=== PATIENT | female | born 1945 | race American Indian/Alaskan Native ===

== ENCOUNTER 2019-05-22 15:17 | Emergency (ER) | payer MEDICARE ==
--- NOTE | 2019-05-22 15:28 | Event Note ---
ED Screening Note Date of service: 05/22/19 Time: 15:25 ED Screening Note: 74 y/o female comes in for right forearm laceration and right lower leg laceration s/p fall. This initial assessment/diagnostic orders/clinical plan/treatment(s) is/are subject to change based on patients health status, clinical progression and re- assessment by fellow clinical providers in the ED. Further treatment and workup at subsequent clinical providers discretion. Patient/guardian urged not to elope from the ED as their condition may be serious if not clinically assessed and managed. Initial orders include:
[2019-05-22 15:32] VITALS: BP 138/74
--- NOTE | 2019-05-22 17:14 | XRay Report ---
RIGHT SHOULDER 3 VIEWS INDICATION / CLINICAL INFORMATION: Pain in right shoulder after fall. COMPARISON: None available. FINDINGS: BONES and JOINT(S): No acute fracture or subluxation. 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 The glenohumeral joint is maintained. SOFT TISSUES: No significant abnormality. ADDITIONAL FINDINGS: None. IMPRESSION: No acute abnormality of the right shoulder. Signer Name: Luke Horne MD Signed: 05/22/2019 5:09 PM Workstation Name: [id number]
--- NOTE | 2019-05-22 17:16 | XRay Report ---
RIGHT TIBIA/FIBULA, 4 VIEWS INDICATION / CLINICAL INFORMATION: lac, fall. COMPARISON: None available. FINDINGS: No fracture or dislocation is noted. There is a small osteoma arising from the medial aspect of the m id tibial shaft. Soft tissue trauma is seen along the lateral lower leg. IMPRESSION: 1. No acute fracture or dislocation. 2. Incidental finding of a small benign-appearing bone lesion arising from the medial aspect of the m id tibial shaft. Signer Name: Clarissa Reid MD Signed: 05/22/2019 5:12 PM Workstation Name: [id number]
[2019-05-22] MEDS ORDERED: TYLENOL #3 PO ONE (17:27)
[2019-05-22] MEDS ORDERED: XYLOCAINE 1%/ EPI 1:100,000 INFILTRATI NR (18:00)
--- NOTE | 2019-05-22 18:37 | Emergency Department Report ---
ED Extremity Problem HPI - General Chief complaint: Fall Stated complaint: RT ARM/LEG INJURY Time Seen by Provider: 05/22/19 15:25 Source: patient Mode of arrival: Ambulatory Limitations: No Limitations - History of Present Illness Initial comments: Patient is a 74-year-old female who suffered a fall at a restaurant. Patient states she was walking to a [place] and there was a step that she did not see. The lighting was low. Patient tripped and fell and injured her right lateral distal calf as well as her right forearm. Patient also is having some pain in the right shoulder as well. Patient states pains as 7 out of 10 in severity and aching throbbing. Patient denies loss of consciousness or head injury. Severity scale (0 -10): 7 - Related Data Previous Rx's Medication Instructions Recorded Last Taken Type Acetaminophen/Codeine [Tylenol 1 tab PO Q6H PRN #10 tab 05/22/19 Unknown Rx /Codeine # 3 tab] Allergies Allergy/AdvReac Type Severity Reaction Status Date / Time carvedilol [From Coreg] Allergy Unknown Verified 05/22/19 15:22 nitrofurantoin Allergy Unknown Verified 05/22/19 15:23 [From Macrobid] NSAIDS (Non-Steroidal Allergy Vomiting Verified 05/22/19 15:22 Anti-Inflamma ED Review of Systems ROS: Stated complaint: RT ARM/LEG INJURY Other details as noted in HPI Comment: All other systems reviewed and negative ED Past Medical Hx - Past Medical History Previous Medical History?: Yes Hx of Cancer: Yes (colon) Hx COPD: Yes Additional medical history: High chol - Surgical History Past Surgical History?: Yes Additional Surgical History: stent in heart 2017 - Social History Smoking Status: Former Smoker Substance Use Type: Alcohol - Medications Home Medications: Home Medications Medication Instructions Recorded Confirmed Last Taken Type Acetaminophen/Codeine [Tylenol 1 tab PO Q6H PRN #10 tab 05/22/19 Unknown Rx /Codeine # 3 tab] ED Physical Exam - General Limitations: No Limitations General appearance: alert, in no apparent distress - Head Head exam: Present: atraumatic, normocephalic - Eye Eye exam: Present: normal appearance, PERRL, EOMI - ENT ENT exam: Present: mucous membranes moist - Neck Neck exam: Present: normal inspection - Respiratory Respiratory exam: Absent: respiratory distress - GI/Abdominal GI/Abdominal exam: Present: soft. Absent: distended, tenderness - Extremities Exam Extremities exam: Present: normal inspection - Back Exam Back exam: Present: normal inspection - Neurological Exam Neurological exam: Present: alert, oriented X3 - Psychiatric Psychiatric exam: Present: normal affect, normal mood - Skin Skin exam: Present: warm, dry, intact, normal color. Absent: rash - Expanded Skin Exam Expanded 1 - 8cm skin tear 2 - 9cm long 2cm wide laceration, crecent shaped ED Course Vital Signs 05/22/19 15:25 Temperature 98.0 F Pulse Rate 88 Respiratory 16 Rate Blood Pressure 138/74 O2 Sat by Pulse 96 Oximetry - Laceration /Wound Repair Right Lower Lateral Distal Calf Wound Location: lower extremity Wound Length (cm): 9 Wound's Depth, Shape: linear (with exposed fat tissue) Wound Explored: clean Irrigated w/ Saline (ccs): 200 Betadine Prep?: Yes Anesthesia: Lidocaine w/ Epi Volume Anesthetic (ccs): 15 Wound Repaired With: sutures Suture Size/Type: 3:0, nylon Number of Sutures: 7 (lateral edges only, center too wide and sutures pull through thin skin) Layer Closure?: No Sterile Dressing Applied?: Yes (steri-strips used to bring center laceration to better approximation) ED Medical Decision Making - Medical Decision Making Patient had x-ray of the right shoulder right tib-fib done which shows no acute fracture. Patient's skin tear on the right forearm was dressed with Xeroform gauze and sterile dressings. The wound on the right lower extremity also was covered with Xeroform after the wound was approximated as best as we could. Patient be discharged home with Tylenol with codeine for pain control. Critical care attestation.: If time is entered above; I have spent that time in minutes in the direct care of this critically ill patient, excluding procedure time. ED Disposition Clinical Impression: Laceration, Fall, Musculoskeletal pain Disposition: - TO HOME OR SELFCARE Is pt being admited?: No Does the pt Need Aspirin: No Condition: Stable Instructions: Suture Care (ED), Laceration (ED), Skin Tear (ED), Musculoskeletal Pain (ED) Prescriptions: Acetaminophen/Codeine [Tylenol /Codeine # 3 tab] 1 tab PO Q6H PRN #10 tab PRN Reason: Pain , Severe (7-10) Referrals: PRIMARY CARE,MD [Primary Care Provider] - 7-10 days (for suture removal and wound recheck ) Time of Disposition: 18:44
== END 2019-05-22 18:51 | disposition home or self-care (01) ==
LOC: ED 15:17
DX: S81.811A Laceration without foreign body, right lower leg, initial encounter (principal); M79.18 Myalgia, other site; J44.9 Chronic obstructive pulmonary disease, unspecified; E78.5 Hyperlipidemia, unspecified; Z85.038 Personal history of other malignant neoplasm of large intestine; Z88.6 Allergy status to analgesic agent; Z88.8 Allergy status to other drugs, medicaments and biological substances; W18.30XA Fall on same level, unspecified, initial encounter; Y93.89 Activity, other specified; Y92.89 Other specified places as the place of occurrence of the external cause; Y99.8 Other external cause status